=== PATIENT | male | born 1990 | race African-American/Black ===

== ENCOUNTER 2023-08-05 09:16 | Outpatient (CLI) | payer OTHER, SELFPAY ==
--- NOTE | 2023-08-05 09:00 | DI.RAD_ITS ---
Exam(s) XR HAND RT COMPLETE EXAM: XR HAND RT COMPLETE CLINICAL HISTORY: RIGHT HAND PAIN. TECHNIQUE: 2D digital imaging was performed of the right hand. Three images were obtained. AP, late ral and oblique views were obtained. COMPARISON: No exams were available for comparison FINDINGS: BONES: There is an old fracture deformity involving the shaft of the 2nd metacarpal bone. There is a lso a subacute fracture involving the distal aspect of the diaphysis of the right 2nd metacarpal bone . Callus formation has developed about the fracture site. No bony destructive lesion is seen. JOINTS: No dislocation present. SOFT TISSUE: Normal. IMPRESSION: Subacute fracture involving the distal diaphysis of the right 2nd metacarpal. DATA REPOSITORY: RADIATION DOSE DELIVERED:
== END 2023-08-05 09:17 | disposition home or self-care (01) ==
LOC: DIORS 09:16
PROVIDERS: PCP Emergency Medicine; Visit Provider Student in an Organized Health Care Education/Training Program
DX: S62.311A Displaced fracture of base of second metacarpal bone, left hand, initial encounter for closed fracture (principal); X58.XXXA Exposure to other specified factors, initial encounter
CPT/HCPCS: 73130